=== PATIENT | male | born 1960 | race Caucasian/White ===

== ENCOUNTER → 2016-09-16 | Outpatient (CLI) | payer MEDICARE | LOC: KOH-I 09-10 15:15 | DX: M14.672 Charcot's joint, left ankle and foot (principal); M72.2 Plantar fascial fibromatosis | CPT/HCPCS: 73718 ==

== ENCOUNTER → 2020-06-07 | Outpatient (CLI) | payer OTHER ==
[~2020-06-07] MED LIST: AUGMENTIN 875-1 EACH PO; CALCITONIN; CLEOCIN HCL300 MG PO; COLACE 100MG C100 MG PO; ECOTRIN81 MG PO; ENOXAPARIN40 MG/0.4 SC; FLEXERIL 10 MG10 MG PO; FOSAMAX 10 MG T10 MG PO; GLUCOPHAGE1000 MG PO; JARDIANCE25 MG PO; LANTUS100 UNIT/1 INJ; LEVAQUIN750 MG PO; LIPITOR80 MG PO; LYRICA300 MG PO; NEURONTIN800 MG PO; NORCO 10-325 T1 EACH PO; NOVOLOG FL100 UNIT/1 INJ; OMEPRAZOLE20 MG PO; SENOKOT PO; SULFAMETHOXAZO1 EACH PO; VITAMIN D PO; ZESTORETIC 20-1 EACH PO
[2020-06-07 13:37] LABS: HEMOGLOBIN 14.7 gm/dl (14.0-17.5); RED BLOOD COUNT 4.87 M/UL (4.20-5.50)
[2020-06-07 14:01] LABS: BUN/CREATININE RATIO 26 (0-10)
== END ==
LOC: OPSV 11:45
PROVIDERS: Podiatrist Foot & Ankle Surgery
PROC: 02HV33Z Insertion of Infusion Device into Superior Vena Cava, Percutaneous Approach (ICD-10-PCS; principal; 2020-06-07)
DX: M86.9 Osteomyelitis, unspecified (principal)
CPT/HCPCS: 80053; 85027; 85652; 86140; 96365; J2185

== ENCOUNTER → 2020-06-08 | Outpatient (CLI) | payer OTHER | LOC: OPSV 06:53 | DX: M06.9 Rheumatoid arthritis, unspecified (principal) | CPT/HCPCS: G0463 ==

== ENCOUNTER → 2020-06-14 | Outpatient (CLI) | payer OTHER ==
[~2020-06-14] VITALS: Ht 182.9 cm; Wt 155.6 kg
== END ==
LOC: OPSV 12:25
DX: M86.9 Osteomyelitis, unspecified (principal)
CPT/HCPCS: 36415; 82550; 96365; J0878

== ENCOUNTER → 2020-06-21 | Outpatient (CLI) | payer OTHER ==
[2020-06-21 09:18] LABS: HEMOGLOBIN 15.6 gm/dl (14.0-17.5); RED BLOOD COUNT 5.01 M/UL (4.20-5.50); WHITE BLOOD COUNT 11.5 K/UL (4.5-11.0)
[2020-06-21 09:41] LABS: BUN/CREATININE RATIO 31 (0-10)
== END ==
LOC: OPSV 08:55
PROVIDERS: Podiatrist Foot & Ankle Surgery
DX: M86.8X7 Other osteomyelitis, ankle and foot (principal)
CPT/HCPCS: 80053; 85027; 85652; 86140

== ENCOUNTER → 2020-06-28 | Outpatient (CLI) | payer OTHER ==
[2020-06-28 09:23] LABS: HEMOGLOBIN 15.3 gm/dl (14.0-17.5); RED BLOOD COUNT 4.92 M/UL (4.20-5.50); WHITE BLOOD COUNT 10.8 K/UL (4.5-11.0)
== END ==
LOC: OPSV 08:45
PROVIDERS: Nurse Practitioner Family
DX: M86.8X7 Other osteomyelitis, ankle and foot (principal); I10 Essential (primary) hypertension; E11.9 Type 2 diabetes mellitus without complications; E78.5 Hyperlipidemia, unspecified
CPT/HCPCS: 80053; 80061; 82570; 82607; 84156; 84439; 84443; 85025; 85652; 86140

== ENCOUNTER → 2020-07-05 | Outpatient (CLI) | payer OTHER ==
[2020-07-05 08:57] LABS: HEMOGLOBIN 15.8 gm/dl (14.0-17.5); RED BLOOD COUNT 5.05 M/UL (4.20-5.50); WHITE BLOOD COUNT 10.4 K/UL (4.5-11.0)
[2020-07-05 09:18] LABS: BUN/CREATININE RATIO 22 (0-10)
== END ==
LOC: OPSV 08:29
PROVIDERS: Podiatrist Foot & Ankle Surgery
DX: M86.8X7 Other osteomyelitis, ankle and foot (principal)
CPT/HCPCS: 80053; 85027; 85652; 86140

== ENCOUNTER → 2020-07-19 | Outpatient (CLI) | payer OTHER ==
[2020-07-19 08:38] LABS: HEMOGLOBIN 14.1 gm/dl (14.0-17.5); RED BLOOD COUNT 4.6 M/UL (4.20-5.50); WHITE BLOOD COUNT 9.7 K/UL (4.5-11.0)
[2020-07-19 09:31] LABS: BUN/CREATININE RATIO 27 (0-10)
== END ==
LOC: OPSV 07:58
PROVIDERS: Podiatrist Foot & Ankle Surgery
DX: M86.8X7 Other osteomyelitis, ankle and foot (principal)
CPT/HCPCS: 80053; 82550; 85027; 85652; 86140

== ENCOUNTER → 2020-07-26 | Outpatient (CLI) | payer OTHER ==
[2020-07-26 08:42] LABS: HEMOGLOBIN 14.8 gm/dl (14.0-17.5); RED BLOOD COUNT 4.89 M/UL (4.20-5.50); WHITE BLOOD COUNT 10.4 K/UL (4.5-11.0)
[2020-07-26 09:16] LABS: BUN/CREATININE RATIO 23 (0-10)
== END ==
LOC: OPSV 08:08
PROVIDERS: Podiatrist Foot & Ankle Surgery
DX: M86.8X7 Other osteomyelitis, ankle and foot (principal); E03.9 Hypothyroidism, unspecified
CPT/HCPCS: 80053; 84439; 84443; 85027; 85652; 86140

== ENCOUNTER → 2020-08-02 | Outpatient (CLI) | payer OTHER ==
[2020-08-02 09:15] LABS: RED BLOOD COUNT 4.88 M/UL (4.20-5.50)
[2020-08-02 09:23] LABS: BUN/CREATININE RATIO 36 (0-10)
== END ==
LOC: OPSV 08:22
PROVIDERS: Podiatrist Foot & Ankle Surgery
DX: M86.172 Other acute osteomyelitis, left ankle and foot (principal); E11.621 Type 2 diabetes mellitus with foot ulcer; L97.509 Non-pressure chronic ulcer of other part of unspecified foot with unspecified severity
CPT/HCPCS: 80053; 82550; 85027; 85652; 86140

== ENCOUNTER → 2020-08-09 | Outpatient (CLI) | payer OTHER ==
[2020-08-09 09:05] LABS: HEMOGLOBIN 14.1 gm/dl (14.0-17.5); RED BLOOD COUNT 4.57 M/UL (4.20-5.50); WHITE BLOOD COUNT 7.5 K/UL (4.5-11.0)
== END ==
LOC: OPSV 08:00
PROVIDERS: Podiatrist Foot & Ankle Surgery
DX: M86.172 Other acute osteomyelitis, left ankle and foot (principal); E11.621 Type 2 diabetes mellitus with foot ulcer; L97.509 Non-pressure chronic ulcer of other part of unspecified foot with unspecified severity
CPT/HCPCS: 80053; 82550; 85027; 85652; 86140

== ENCOUNTER → 2020-08-16 | Outpatient (CLI) | payer OTHER ==
[2020-08-16 08:39] LABS: RED BLOOD COUNT 4.56 M/UL (4.20-5.50); WHITE BLOOD COUNT 7.4 K/UL (4.5-11.0)
[2020-08-16 09:33] LABS: BUN/CREATININE RATIO 30 (0-10)
== END ==
LOC: OPSV 08:15
PROVIDERS: Podiatrist Foot & Ankle Surgery
DX: M86.8X7 Other osteomyelitis, ankle and foot (principal)
CPT/HCPCS: 80053; 82550; 85027; 85652; 86140

== ENCOUNTER → 2020-08-23 | Outpatient (CLI) | payer OTHER ==
[~2020-08-23] VITALS: Ht 182.9 cm; Wt 155.6 kg
[2020-08-23 09:11] LABS: HEMOGLOBIN 14.1 gm/dl (14.0-17.5); RED BLOOD COUNT 4.59 M/UL (4.20-5.50); WHITE BLOOD COUNT 7.6 K/UL (4.5-11.0)
[2020-08-23 09:31] LABS: BUN/CREATININE RATIO 28 (0-10)
== END ==
LOC: OPSV 08:37
PROVIDERS: Podiatrist Foot & Ankle Surgery
DX: E11.621 Type 2 diabetes mellitus with foot ulcer (principal); L97.509 Non-pressure chronic ulcer of other part of unspecified foot with unspecified severity; M86.172 Other acute osteomyelitis, left ankle and foot
CPT/HCPCS: 80053; 82550; 85027; 85652; 86140

== ENCOUNTER → 2020-08-30 | Outpatient (CLI) | payer OTHER ==
[2020-08-30 08:32] LABS: HEMOGLOBIN 14.2 gm/dl (14.0-17.5); RED BLOOD COUNT 4.62 M/UL (4.20-5.50)
[2020-08-30 08:53] LABS: BUN/CREATININE RATIO 30 (0-10)
== END ==
LOC: OPSV 07:52
PROVIDERS: Podiatrist Foot & Ankle Surgery
DX: E11.69 Type 2 diabetes mellitus with other specified complication (principal); M86.172 Other acute osteomyelitis, left ankle and foot; E11.621 Type 2 diabetes mellitus with foot ulcer; L97.509 Non-pressure chronic ulcer of other part of unspecified foot with unspecified severity
CPT/HCPCS: 80053; 82550; 85027; 85652; 86140

== ENCOUNTER → 2020-09-06 | Outpatient (CLI) | payer OTHER ==
[2020-09-06 08:45] LABS: HEMOGLOBIN 13.8 gm/dl (14.0-17.5); RED BLOOD COUNT 4.55 M/UL (4.20-5.50); WHITE BLOOD COUNT 7.8 K/UL (4.5-11.0)
[2020-09-06 09:05] LABS: BUN/CREATININE RATIO 18 (0-10)
== END ==
LOC: OPSV 08:00
PROVIDERS: Podiatrist Foot & Ankle Surgery
DX: M86.172 Other acute osteomyelitis, left ankle and foot (principal); E11.621 Type 2 diabetes mellitus with foot ulcer; M86.9 Osteomyelitis, unspecified
CPT/HCPCS: 80053; 82550; 85027; 85652; 86140

== ENCOUNTER → 2020-09-13 | Outpatient (CLI) | payer OTHER ==
[2020-09-13 08:45] LABS: HEMOGLOBIN 14.5 gm/dl (14.0-17.5); RED BLOOD COUNT 4.73 M/UL (4.20-5.50); WHITE BLOOD COUNT 8.8 K/UL (4.5-11.0)
[2020-09-13 09:27] LABS: BUN/CREATININE RATIO 31 (0-10)
== END ==
LOC: OPSV 08:09
PROVIDERS: Podiatrist Foot & Ankle Surgery
DX: E11.69 Type 2 diabetes mellitus with other specified complication (principal); M86.172 Other acute osteomyelitis, left ankle and foot; E11.621 Type 2 diabetes mellitus with foot ulcer; L97.509 Non-pressure chronic ulcer of other part of unspecified foot with unspecified severity; Z88.1 Allergy status to other antibiotic agents; Z79.84 Long term (current) use of oral hypoglycemic drugs
CPT/HCPCS: 80053; 82550; 85027; 85652; 86140

== ENCOUNTER → 2020-09-20 | Outpatient (CLI) | payer OTHER ==
[2020-09-20 09:00] LABS: HEMOGLOBIN 13.4 gm/dl (14.0-17.5); RED BLOOD COUNT 4.56 M/UL (4.20-5.50)
== END ==
LOC: OPSV 08:19
PROVIDERS: Podiatrist Foot & Ankle Surgery
DX: M86.9 Osteomyelitis, unspecified (principal)
CPT/HCPCS: 80053; 82550; 85027; 85652; 86140

== ENCOUNTER → 2020-09-27 | Outpatient (CLI) | payer OTHER ==
[2020-09-27 08:51] LABS: HEMOGLOBIN 14.1 gm/dl (14.0-17.5); RED BLOOD COUNT 4.63 M/UL (4.20-5.50); WHITE BLOOD COUNT 8.9 K/UL (4.5-11.0)
[2020-09-27 09:16] LABS: BUN/CREATININE RATIO 22 (0-10)
== END ==
LOC: OPSV 07:58
PROVIDERS: Podiatrist Foot & Ankle Surgery
DX: M86.9 Osteomyelitis, unspecified (principal)
CPT/HCPCS: 80053; 82550; 85027; 85652; 86140

== ENCOUNTER → 2020-10-04 | Outpatient (CLI) | payer OTHER ==
[2020-10-04 09:19] LABS: HEMOGLOBIN 13.2 gm/dl (14.0-17.5); RED BLOOD COUNT 4.31 M/UL (4.20-5.50); WHITE BLOOD COUNT 10.7 K/UL (4.5-11.0)
[2020-10-04 09:54] LABS: BUN/CREATININE RATIO 30 (0-10)
== END ==
LOC: OPSV 08:26
PROVIDERS: Podiatrist Foot & Ankle Surgery
DX: M86.9 Osteomyelitis, unspecified (principal)
CPT/HCPCS: 80053; 82550; 85027; 85652; 86140

== ENCOUNTER → 2020-10-11 | Outpatient (CLI) | payer OTHER ==
[2020-10-11 08:21] LABS: HEMOGLOBIN 12.9 gm/dl (14.0-17.5); RED BLOOD COUNT 4.17 M/UL (4.20-5.50); WHITE BLOOD COUNT 8.1 K/UL (4.5-11.0)
[2020-10-11 08:50] LABS: BUN/CREATININE RATIO 35 (0-10)
== END ==
LOC: OPSV 07:37
PROVIDERS: Podiatrist Foot & Ankle Surgery
DX: E11.69 Type 2 diabetes mellitus with other specified complication (principal); M86.172 Other acute osteomyelitis, left ankle and foot; E11.621 Type 2 diabetes mellitus with foot ulcer; L97.529 Non-pressure chronic ulcer of other part of left foot with unspecified severity
CPT/HCPCS: 80053; 82550; 85027; 85652; 86140

== ENCOUNTER → 2020-10-18 | Outpatient (CLI) | payer OTHER ==
[2020-10-18 08:33] LABS: HEMOGLOBIN 12.9 gm/dl (14.0-17.5); RED BLOOD COUNT 4.19 M/UL (4.20-5.50); WHITE BLOOD COUNT 7.9 K/UL (4.5-11.0)
[2020-10-18 08:56] LABS: BUN/CREATININE RATIO 27 (0-10)
== END ==
LOC: OPSV 07:50
PROVIDERS: Podiatrist Foot & Ankle Surgery
DX: E11.69 Type 2 diabetes mellitus with other specified complication (principal); M86.172 Other acute osteomyelitis, left ankle and foot; E11.621 Type 2 diabetes mellitus with foot ulcer
CPT/HCPCS: 80053; 82550; 85027; 85652; 86140

== ENCOUNTER → 2020-10-25 | Outpatient (CLI) | payer OTHER ==
[2020-10-25 08:49] LABS: HEMOGLOBIN 13.4 gm/dl (14.0-17.5); RED BLOOD COUNT 4.32 M/UL (4.20-5.50); WHITE BLOOD COUNT 8.5 K/UL (4.5-11.0)
[2020-10-25 09:13] LABS: BUN/CREATININE RATIO 27 (0-10)
== END ==
LOC: OPSV 07:50
PROVIDERS: Podiatrist Foot & Ankle Surgery
DX: Z51.81 Encounter for therapeutic drug level monitoring (principal); M86.172 Other acute osteomyelitis, left ankle and foot; E11.621 Type 2 diabetes mellitus with foot ulcer; E11.69 Type 2 diabetes mellitus with other specified complication; Z88.1 Allergy status to other antibiotic agents
CPT/HCPCS: 80053; 82550; 85027; 85652; 86140

== ENCOUNTER → 2020-11-01 | Outpatient (CLI) | payer OTHER ==
[2020-11-01 08:45] LABS: HEMOGLOBIN 13.7 gm/dl (14.0-17.5); RED BLOOD COUNT 4.38 M/UL (4.20-5.50); WHITE BLOOD COUNT 9.5 K/UL (4.5-11.0)
== END ==
LOC: OPSV 08:00
PROVIDERS: Podiatrist Foot & Ankle Surgery
DX: M86.172 Other acute osteomyelitis, left ankle and foot (principal); E11.621 Type 2 diabetes mellitus with foot ulcer
CPT/HCPCS: 80053; 82550; 85027; 85652; 86140

== ENCOUNTER → 2020-11-08 | Outpatient (CLI) | payer OTHER ==
[2020-11-08 08:25] LABS: HEMOGLOBIN 12.7 gm/dl (14.0-17.5); RED BLOOD COUNT 4.1 M/UL (4.20-5.50); WHITE BLOOD COUNT 7.1 K/UL (4.5-11.0)
== END ==
LOC: OPSV 07:37
PROVIDERS: Podiatrist Foot & Ankle Surgery
DX: E11.69 Type 2 diabetes mellitus with other specified complication (principal); M86.172 Other acute osteomyelitis, left ankle and foot
CPT/HCPCS: 80053; 82550; 85027; 85652; 86140

== ENCOUNTER → 2020-11-15 | Outpatient (CLI) | payer OTHER ==
[2020-11-15 08:13] LABS: HEMOGLOBIN 13.1 gm/dl (14.0-17.5); RED BLOOD COUNT 4.15 M/UL (4.20-5.50); WHITE BLOOD COUNT 7.1 K/UL (4.5-11.0)
== END ==
LOC: OPSV 07:25
PROVIDERS: Podiatrist Foot & Ankle Surgery
DX: M86.9 Osteomyelitis, unspecified (principal)
CPT/HCPCS: 80053; 82550; 85027; 85652; 86140

== ENCOUNTER → 2020-11-22 | Outpatient (CLI) | payer OTHER ==
[2020-11-22 08:00] LABS: HEMOGLOBIN 13.3 gm/dl (14.0-17.5); RED BLOOD COUNT 4.29 M/UL (4.20-5.50); WHITE BLOOD COUNT 8.7 K/UL (4.5-11.0)
== END ==
LOC: OPSV 07:34
PROVIDERS: Podiatrist Foot & Ankle Surgery
DX: M86.8X7 Other osteomyelitis, ankle and foot (principal)
CPT/HCPCS: 80053; 82550; 85027; 85652; 86140

== ENCOUNTER → 2020-11-29 | Outpatient (CLI) | payer OTHER ==
[2020-11-29 08:38] LABS: HEMOGLOBIN 13.1 gm/dl (14.0-17.5); RED BLOOD COUNT 4.2 M/UL (4.20-5.50)
== END ==
LOC: OPSV 07:56
PROVIDERS: Podiatrist Foot & Ankle Surgery
DX: Z51.81 Encounter for therapeutic drug level monitoring (principal); Z79.2 Long term (current) use of antibiotics; M86.9 Osteomyelitis, unspecified
CPT/HCPCS: 80053; 82550; 85027; 85652; 86140

== ENCOUNTER → 2020-12-05 | Outpatient (CLI) | payer OTHER ==
[2020-12-05 08:58] LABS: HEMOGLOBIN 12.8 gm/dl (14.0-17.5); RED BLOOD COUNT 4.08 M/UL (4.20-5.50); WHITE BLOOD COUNT 6.9 K/UL (4.5-11.0)
[2020-12-05 09:27] LABS: BUN/CREATININE RATIO 14 (0-10)
== END ==
LOC: OPSV 08:01 → LAB 08:01
PROVIDERS: Nurse Practitioner Family
DX: I10 Essential (primary) hypertension (principal); E78.5 Hyperlipidemia, unspecified; E03.9 Hypothyroidism, unspecified; E11.65 Type 2 diabetes mellitus with hyperglycemia; E55.9 Vitamin D deficiency, unspecified
CPT/HCPCS: 36415; 80053; 80061; 82550; 82570; 82607; 84153; 84156; 84439; 84443; 85025; 85652; 86140

== ENCOUNTER → 2020-12-13 | Outpatient (CLI) | payer OTHER ==
[2020-12-13 08:28] LABS: HEMOGLOBIN 14.3 gm/dl (14.0-17.5); RED BLOOD COUNT 4.64 M/UL (4.20-5.50); WHITE BLOOD COUNT 8.7 K/UL (4.5-11.0)
[2020-12-13 08:46] LABS: BUN/CREATININE RATIO 16 (0-10)
== END ==
LOC: OPSV 07:50
PROVIDERS: Podiatrist Foot & Ankle Surgery
DX: M86.9 Osteomyelitis, unspecified (principal)
CPT/HCPCS: 80053; 82550; 85027; 85652; 86140

== ENCOUNTER → 2020-12-20 | Outpatient (CLI) | payer OTHER ==
[2020-12-20 08:21] LABS: HEMOGLOBIN 13.7 gm/dl (14.0-17.5); RED BLOOD COUNT 4.4 M/UL (4.20-5.50); WHITE BLOOD COUNT 7.9 K/UL (4.5-11.0)
[2020-12-20 08:40] LABS: BUN/CREATININE RATIO 17 (0-10)
== END ==
LOC: OPSV 07:36
PROVIDERS: Podiatrist Foot & Ankle Surgery
DX: M86.8X7 Other osteomyelitis, ankle and foot (principal)
CPT/HCPCS: 36415; 80053; 82550; 85027; 85652; 86140

== ENCOUNTER → 2020-12-27 | Outpatient (CLI) | payer OTHER ==
[2020-12-27 08:12] LABS: HEMOGLOBIN 13.5 gm/dl (14.0-17.5); RED BLOOD COUNT 4.61 M/UL (4.20-5.50); WHITE BLOOD COUNT 10.9 K/UL (4.5-11.0)
== END ==
LOC: OPSV 07:24
PROVIDERS: Podiatrist Foot & Ankle Surgery
DX: Z51.81 Encounter for therapeutic drug level monitoring (principal); M86.9 Osteomyelitis, unspecified; Z79.2 Long term (current) use of antibiotics
CPT/HCPCS: 36415; 80053; 82550; 85027; 85652; 86140

== ENCOUNTER → 2021-01-03 | Outpatient (CLI) | payer OTHER ==
[2021-01-03 08:22] LABS: HEMOGLOBIN 13.1 gm/dl (14.0-17.5); RED BLOOD COUNT 4.37 M/UL (4.20-5.50); WHITE BLOOD COUNT 7.4 K/UL (4.5-11.0)
== END ==
LOC: OPSV 07:32
PROVIDERS: Podiatrist Foot & Ankle Surgery
DX: Z51.81 Encounter for therapeutic drug level monitoring (principal); M06.9 Rheumatoid arthritis, unspecified; Z79.2 Long term (current) use of antibiotics
CPT/HCPCS: 80053; 82550; 85027; 85652; 86140

== ENCOUNTER → 2021-01-10 | Outpatient (CLI) | payer OTHER ==
[2021-01-10 08:52] LABS: HEMOGLOBIN 13.7 gm/dl (14.0-17.5); RED BLOOD COUNT 4.43 M/UL (4.20-5.50); WHITE BLOOD COUNT 8.1 K/UL (4.5-11.0)
[2021-01-10 10:32] LABS: BUN/CREATININE RATIO 17 (0-10)
== END ==
LOC: OPSV 07:52
PROVIDERS: Podiatrist Foot & Ankle Surgery
DX: M86.9 Osteomyelitis, unspecified (principal)
CPT/HCPCS: 80053; 82550; 85027; 85652; 86140

== ENCOUNTER 2021-04-02 09:07 | Emergency (ER) | payer OTHER ==
[2021-04-02 09:55] LABS: HEMOGLOBIN 12.5 gm/dl (14.0-17.5); RED BLOOD COUNT 4.12 M/UL (4.20-5.50)
[2021-04-02 10:23] LABS: BUN/CREATININE RATIO 15 (0-10)
== END 2021-04-02 15:10 | disposition home or self-care (01) ==
LOC: ER1 09:07
PROVIDERS: Physician Assistant
DX: I95.9 Hypotension, unspecified (principal); E86.0 Dehydration; I10 Essential (primary) hypertension; E11.40 Type 2 diabetes mellitus with diabetic neuropathy, unspecified; Z20.822 Contact with and (suspected) exposure to COVID-19; Z88.1 Allergy status to other antibiotic agents; Z79.899 Other long term (current) drug therapy
CPT/HCPCS: 71045; 80053; 81001; 82550; 82553; 82962; 83605; 83874; 84484; 85025; 87040; 93005; 96374; 96375; 99285; J0696; J7030; Q9967; U0002